=== PATIENT | female | born 1950 | race Caucasian/White ===

== ENCOUNTER → 2016-10-21 | Outpatient (CLI) | payer OTHER ==
[~2016-10-21] MED LIST: ALPR-411 PO; ASPI-390 PO; ASPI81TA28 PO; BIOTCAP2 PO; CHOL100010 PO; DOCU100C31 PO; FLUT1SPR12 NAE; PANT40TA; PSYL55.43 PO
[2016-10-21 14:54] LABS: URINE APPEARANCE CLEAR (CLEAR); URINE BILIRUBIN NEG (NEG); URINE COLOR YELLOW; URINE EPITHELIAL CELL AUTO 0-5 /lpf (0-5); URINE NITRITE NEG (NEG); URINE PH 6.5 (4.5-7.5); URINE SPECIFIC GRAVITY 1.012 (1.000-1.030); UROBILINOGEN NEG (NEG)
[2016-10-21 15:00] LABS: MANUAL MICROSCOPIC REQUIRED? NO; REVIEW REQ? NO
== END | disposition home or self-care (01) ==
LOC: C.LABSPEC 14:12
PROVIDERS: ATTEND Obstetrics & Gynecology
DX: R39.15 Urgency of urination (principal)

== ENCOUNTER → 2016-10-21 | Outpatient (CLI) | payer OTHER | END | disposition home or self-care (01) | LOC: C.PAPS 15:24 | PROVIDERS: ATTEND Obstetrics & Gynecology | DX: Z12.4 Encounter for screening for malignant neoplasm of cervix (principal) ==

== ENCOUNTER → 2016-10-21 | Outpatient (CLI) | payer OTHER ==
--- NOTE | 2016-10-21 16:47 | MAMMOGRAPHY REPORT ---
BILATERAL DIGITAL SCREENING MAMMOGRAM TOMOSYNTHESIS WITH CAD: 10/21/2016 CLINICAL HISTORY: Routine screening. Patient has no complaints. TECHNIQUE: Breast tomosynthesis in addition to standard 2D mammography was performed. Current study was also evaluated with a Computer Aided Detection (CAD) system. COMPARISON: Comparison is made to exams dated: 09/18/2015 mammogram, 09/16/2014 mammogram, 09/14/20 13 mammogram, 08/27/2012 mammogram, 08/02/2011 mammogram, and 07/18/2010 mammogram - [facility]. BREAST COMPOSITION: There are scattered areas of fibroglandular density in both breasts. FINDINGS: There is a stable-shaped metallic biopsy marker in the approximate 3:00 left breast. Chris ign coarse and round calcifications are stable within the right breast. No new suspicious mass, arc hitectural distortion or cluster of microcalcifications is seen. IMPRESSION: ACR BI-RADS CATEGORY 1: NEGATIVE There is no mammographic evidence of malignancy. A 1 year screening mammogram is recommended. The p atient will receive written notification of the results. Approximately 10% of breast cancers are not detected with mammography. A negative mammographic repor t should not delay biopsy if a clinically suggestive mass is present. Noelle Martins M.D. ay/:10/21/2016 15:29:34 Date Pitter: Mariama RAMIREZ)(M), [facility] letter sent: Normal 1/2 BI-RADS Code: ACR BI-RADS Category 1: Negative
== END | disposition home or self-care (01) ==
LOC: C.MAMM 09:53
PROVIDERS: ATTEND Obstetrics & Gynecology
DX: Z12.31 Encounter for screening mammogram for malignant neoplasm of breast (principal)

== ENCOUNTER → 2017-08-28 | Outpatient (CLI) | payer OTHER ==
[2017-08-28 13:59] LABS: BASO % 0.2 %; BASO ABS # 0.01 K/uL (0-0.2); COMPLETE YES; EOS % 1.1 %; HEMATOCRIT 39.9 % (37-47); LYMPH % 30.6 %; LYMPH ABS # 1.39 K/uL (1.2-3.4); MEAN CELL VOLUME 88.5 fL (80-100); MEAN CORPUSCULAR HEMOGLOBIN 27.7 pg (25-34); MEAN CORPUSCULAR HGB CONC 31.3 g/dl (32-36); MEAN PLATELET VOLUME 9.8 fL (7.4-10.4); MONO % 7.7 %; NEUT % 60.4 %; PLATELET COUNT 181 K/uL (130-400); RED BLOOD COUNT 4.51 M/uL (4.2-5.4); WHITE BLOOD COUNT 4.54 K/uL (4.8-10.8)
[2017-08-28 14:36] LABS: LYME DISEASE AB IGG NEG (NEG); LYME DISEASE AB IGM NEG (NEG)
== END | disposition home or self-care (01) ==
LOC: C.LABBC 11:19
PROVIDERS: ATTEND Nurse Practitioner Adult Health
DX: Z11.59 Encounter for screening for other viral diseases (principal); H53.9 Unspecified visual disturbance

== ENCOUNTER → 2017-09-18 | Outpatient (CLI) | payer OTHER ==
[2017-09-18 11:15] LABS: ALT/SGPT 22 U/L (12-78); AST/SGOT 19 U/L (15-37); BLOOD UREA NITROGEN 19 mg/dl (7-18); BUN/CREATININE RATIO 25.7 (10-20); CARBON DIOXIDE 29 mmol/L (21-32); CHLORIDE 105 mmol/L (98-107); CREATININE 0.72 mg/dl (0.60-1.20); GLUCOSE 80 mg/dl (70-99); POTASSIUM 4.2 mmol/L (3.5-5.1); SODIUM 138 mmol/L (136-145)
[2017-09-18 11:26] LABS: ALB/GLOB RATIO 0.9 (0.9-2); ALKALINE PHOSPHATASE 50 U/L (45-117); CHOLESTEROL 190 mg/dl (0-200); CHOLESTEROL/HDL RATIO 2.3; HDL CHOLESTEROL 84 mg/dl; LDL CHOLESTEROL CALCULATED 93 mg/dl; TRIGLYCERIDES 67 mg/dl (0-150); VERY LOW DENSITY LIPOPROT CALC 13 mg/dl
== END | disposition home or self-care (01) ==
LOC: C.LABBC 07:48
PROVIDERS: ATTEND Nurse Practitioner Adult Health
DX: Z00.00 Encounter for general adult medical examination without abnormal findings (principal); E55.9 Vitamin D deficiency, unspecified; R53.83 Other fatigue

== ENCOUNTER → 2017-10-27 | Outpatient (CLI) | payer OTHER ==
--- NOTE | 2017-10-27 15:52 | MAMMOGRAPHY REPORT ---
BILATERAL DIGITAL SCREENING MAMMOGRAM TOMOSYNTHESIS WITH CAD: 10/27/2017 CLINICAL HISTORY: Routine screening. Patient has no complaints. TECHNIQUE: Breast tomosynthesis in addition to standard 2D mammography was performed. Current study was also evaluated with a Computer Aided Detection (CAD) system. COMPARISON: Comparison is made to exams dated: 10/21/2016 mammogram, 09/18/2015 mammogram, 09/16/2014 mammogram, 09/14/2013 mammogram, and 08/02/2011 mammogram - [facility]. BREAST COMPOSITION: There are scattered areas of fibroglandular density in both breasts. FINDINGS: No suspicious masses, calcifications, or areas of architectural distortion are noted in ei ther breast. There has been no significant interval change compared to prior exams. A biopsy marker clip is again noted within the left upper outer quadrant. Bilateral benign-appearing calcifications are not significantly changed. IMPRESSION: ACR BI-RADS CATEGORY 2: BENIGN There is no mammographic evidence of malignancy. A 1 year screening mammogram is recommended. The pa tient will receive written notification of the results. Approximately 10% of breast cancers are not detected with mammography. A negative mammographic report should not delay biopsy if a clinically suggestive mass is present. Nohemi Whittaker M.D. /:10/27/2017 12:16:53 Behavioral Geneticist: Kristen RAMIREZ)(Keke), [facility] letter sent: Normal 1/2 BI-RADS Code: ACR BI-RADS Category 2: Benign
== END | disposition home or self-care (01) ==
LOC: C.MAMM 09:54
PROVIDERS: ATTEND Obstetrics & Gynecology
DX: Z12.31 Encounter for screening mammogram for malignant neoplasm of breast (principal)

== ENCOUNTER 2017-11-03 12:24 | Emergency (ER) | payer OTHER ==
[~2017-11-03] VITALS: Ht 157.5 cm; Wt 63.4 kg
[2017-11-03 12:35] VITALS: TEMP 37; Ht 157.5 cm; Wt 63.4 kg
[2017-11-03] MEDS ORDERED: MECLIZINE HCL 25 MG TAB PO STA ×2 (13:15→17:32)
[2017-11-03] MEDS ORDERED: LORAZEPAM 2 MG/ML 1 ML VIAL IV STA ×2 (13:15→15:04)
[2017-11-03] MEDS ORDERED: ONDANSETRON INJ 2 MG/ML 2 ML VIAL IV STA (13:15)
--- NOTE | 2017-11-03 13:18 | EMERGENCY ROOM VISIT NOTE ---
History Report prepared by Sharmila: Delonte Arriaga Under the Supervision of: Dr. Rolando Ly M.D. First contact with patient: 13:11 Chief Complaint: VERTIGO Stated Complaint: ILLNESS Nursing Triage Summary: Patient to ED via BLS states she is having "another episode" of vertigo that started today along with nausea/vomitting since last night. Patient denies aches/fever/chills. Patient reports history of vertigo. History of Present Illness The patient is a 67 year old female who presents to the Emergency Room with complaints of constant vertigo-like symptoms that began last night. The patient has a history of vertigo and notes that this is similar to those she has had in the past. She is currently nauseous and vomiting, which she did not have with her previous episodes. The patient is actively vomiting upon arrival to the emergency department. She denies any other fevers, chills, or body aches. Source of History: patient Onset: last night Position: head (vertigo) Quality: other (Vertigo) Timing: constant Associated Symptoms: + vomiting, No fevers, No chills Review of Systems See HPI for pertinent positives & negatives. A total of 10 systems reviewed and were otherwise negative. Past Medical & Surgical Medical Problems: (1) Transient neurological symptoms Surgical Problems: (1) History of endometrial ablation (2) Hx of tonsillectomy Family History Cancer Diabetes mellitus Gallbladder disease Hypertension Kidney disease Kidney stones Social History Smoking Status: Never Smoker Alcohol Use: none Drug Use: none Marital Status: Housing Status: lives with significant other Occupation Status: unemployed Current/Historical Medications Scheduled Aspirin (Aspirin Ec), 81 MG PO DAILY Biotin (Biotin 5000), 5 MG PO DAILY Cholecalciferol (Vitamin D), 4,000 UNITS PO DAILY Fluticasone Propionate (Nasal) (Flonase Allergy Relief Ch), 1 SPRAY DAGMAR DAILY Ondasetron Odt (Zofran Odt), 4 MG SL Q6H Psyllium (Metamucil), 1 PKT PO DAILY Scheduled PRN Alprazolam (Xanax), 0.5 MG PO Q6H PRN for Anxiety Meclizine Hcl (Meclizine Hcl), 1 TAB PO TID PRN for Dizziness or Vertigo Allergies Coded Allergies: Codeine (Unverified Allergy, Mild, 11/03/17) Penicillins (Unverified Allergy, Mild, 11/03/17) Sulfa Drugs (Unverified Allergy, Mild, 11/03/17) Physical Exam Vital Signs Date Time Temp Pulse Resp B/P (MAP) Pulse Ox O2 Delivery O2 Flow Rate FiO2 11/03/17 18:06 80 18 131/81 97 11/03/17 16:00 80 18 131/81 11/03/17 15:30 74 18 11/03/17 15:01 135/73 11/03/17 15:00 75 16 11/03/17 14:04 67 18 128/62 97 Room Air 11/03/17 12:55 67 11/03/17 12:35 37.0 67 20 155/83 97 Room Air Physical Exam GENERAL: Patient is a healthy-appearing well-nourished female HEAD: Normocephalic atraumatic EYES: Ocular movements intact pupils equal and react to light OROPHARYNX mucous membranes are moist no exudates present no erythema or edema present NECK: Supple no nuchal rigidity CHEST: Good equal expansion LUNGS: Clear and equal to auscultation CARDIAC: Normal S1 and S2 ABDOMEN: Soft nontender no guarding BACK: No CVA tenderness EXTREMITIES: No pain upon palpation normal muscle strength in all groups no clubbing cyanosis or edema NEURO: Patient is following commands and answering questions appropriately. Alert and oriented x3 Cranial Nerves 2-12 grossly intact. The patient has a positive Ritu-Hallpike Maneuver on the left. Medical Decision & Procedures ER Provider Diagnostic Interpretation: Radiology results as stated below per my review and radiologist interpretation: CT SCAN OF THE BRAIN WITHOUT IV CONTRAST CLINICAL HISTORY: Vertigo. COMPARISON STUDY: CT of the brain dated 03/07/2016. TECHNIQUE: Unenhanced axial CT scan of the brain is performed from the vertex to the skull base. A dose lowering technique was utilized adhering to the principles of ALARA. CT DOSE: 638.56 mGycm FINDINGS: Brain parenchyma: The brain parenchyma is normal in appearance. There is no hemorrhage, mass effect, or evidence of acute territorial ischemia by CT criteria. [place]-white matter is preserved. No extra-axial fluid collection is seen. Ventricles, sulci, cisterns: Normal in configuration. Intracranial vasculature: There is atherosclerotic calcification of the cavernous carotid arteries. Calvarium: Unremarkable. Sinuses and mastoids: The visualized paranasal sinuses are clear. The mastoid air cells are well pneumatized. Orbits: The bony orbits are grossly intact. There are bilateral ocular lens implants. IMPRESSION: There is no hemorrhage, mass effect, or evidence of acute territorial ischemia by CT criteria. Electronically signed by: Art Mcintyre M.D. 11/03/2017 2:07 PM Dictated Date/Time: 11/03/2017 2:05 PM Laboratory Results 11/03/17 12:40 Red Blood Count 4.41, Mean Corpuscular Volume 85.3, Mean Corpuscular Hemoglobin 27.9, Mean Corpuscular Hemoglobin Concent 32.7, Mean Platelet Volume 10.0, Neutrophils (%) (Auto) 60.6, Lymphocytes (%) (Auto) 30.9, Monocytes (%) (Auto) 7.2, Eosinophils (%) (Auto) 0.9, Basophils (%) (Auto) 0.2, Neutrophils # (Auto) 2.78, Lymphocytes # (Auto) 1.42, Monocytes # (Auto) 0.33, Eosinophils # (Auto) 0.04, Basophils # (Auto) 0.01 11/03/17 12:40 Test 11/03/17 12:40 11/03/17 14:15 White Blood Count 4.59 K/uL (4.8-10.8) Red Blood Count 4.41 M/uL (4.2-5.4) Hemoglobin 12.3 g/dL (12.0-16.0) Hematocrit 37.6 % (37-47) Mean Corpuscular Volume 85.3 fL (80-100) Mean Corpuscular Hemoglobin 27.9 pg (25-34) Mean Corpuscular Hemoglobin Concent 32.7 g/dl (32-36) Platelet Count 145 K/uL (130-400) Mean Platelet Volume 10.0 fL (7.4-10.4) Neutrophils (%) (Auto) 60.6 % Lymphocytes (%) (Auto) 30.9 % Monocytes (%) (Auto) 7.2 % Eosinophils (%) (Auto) 0.9 % Basophils (%) (Auto) 0.2 % Neutrophils # (Auto) 2.78 K/uL (1.4-6.5) Lymphocytes # (Auto) 1.42 K/uL (1.2-3.4) Monocytes # (Auto) 0.33 K/uL (0.11-0.59) Eosinophils # (Auto) 0.04 K/uL (0-0.5) Basophils # (Auto) 0.01 K/uL (0-0.2) RDW Standard Deviation 40.3 fL (36.4-46.3) RDW Coefficient of Variation 13.0 % (11.5-14.5) Immature Granulocyte % (Auto) 0.2 % Immature Granulocyte # (Auto) 0.01 K/uL (0.00-0.02) Anion Gap 10.0 mmol/L (3-11) Est Creatinine Clear Calc Drug Dose 65.4 ml/min Estimated GFR () 99.7 Estimated GFR (Non- 86.1 BUN/Creatinine Ratio 21.7 (10-20) Calcium Level 9.2 mg/dl (8.5-10.1) Total Bilirubin 0.6 mg/dl (0.2-1) Direct Bilirubin 0.2 mg/dl (0-0.2) Aspartate Amino Transf (AST/SGOT) 21 U/L (15-37) Alanine Aminotransferase (ALT/SGPT) 24 U/L (12-78) Alkaline Phosphatase 41 U/L (45-117) Total Protein 7.5 gm/dl (6.4-8.2) Albumin 3.8 gm/dl (3.4-5.0) Lipase 123 U/L (73-393) Urine Color YELLOW Urine Appearance TURBID (CLEAR) Urine pH 6.5 (4.5-7.5) Urine Specific [place] 1.022 (1.000-1.030) Urine Protein NEG (NEG) Urine Glucose (UA) NEG (NEG) Urine Ketones 2+ (NEG) Urine Occult Blood NEG (NEG) Urine Nitrite NEG (NEG) Urine Bilirubin NEG (NEG) Urine Urobilinogen NEG (NEG) Urine Leukocyte Esterase NEG (NEG) Urine WBC (Auto) 1-5 /hpf (0-5) Urine RBC (Auto) 0-4 /hpf (0-4) Urine Hyaline Casts (Auto) 1-5 /lpf (0-5) Urine Epithelial Cells (Auto) 5-10 /lpf (0-5) Urine Bacteria (Auto) NEG (NEG) Labs reviewed by ED physician. Medications Administered Medications (Trade) Dose Ordered Sig/Tomasz Route Start Time Stop Time Status Last Admin Dose Admin Ondansetron HCl (Zofran Inj) 4 mg NOW STAT IV 11/03/17 13:15 11/03/17 13:17 DC 11/03/17 13:37 4 MG Lorazepam (Ativan Inj) 0.5 mg NOW STAT IV 11/03/17 13:15 11/03/17 13:17 DC 11/03/17 13:38 0.5 MG Meclizine HCl (Antivert Tab) 25 mg NOW STAT PO 11/03/17 13:15 11/03/17 13:17 DC 11/03/17 13:38 25 MG Sodium Chloride 1,000 ml @ 999 mls/hr Q1H1M STAT IV 11/03/17 15:04 11/03/17 16:04 DC 11/03/17 15:14 999 MLS/HR Lorazepam (Ativan Inj) 0.5 mg NOW STAT IV 11/03/17 15:04 11/03/17 15:06 DC 11/03/17 15:14 0.5 MG Ondansetron HCl (Zofran Odt) 4 mg NOW STAT PO 11/03/17 17:32 11/03/17 17:33 DC 11/03/17 17:40 4 MG Meclizine HCl (Antivert Tab) 25 mg NOW STAT PO 11/03/17 17:32 11/03/17 17:33 DC 11/03/17 17:40 25 MG ED Course 1313: Past medical records reviewed. The patient was evaluated in room B3B. A complete history and physical examination was performed. 1315: Ordered Antivert Tab 25 mg PO, Ativan 0.5 mg IV, Zofran 4 mg IV. 1631: I discussed the findings of the case with the patient at this time. She is still experiencing her vertigo. I offered her admission to the hospital. She declined and would like to be discharged home. Medical Decision Differential diagnosis: Etiologies such as benign positional vertigo, dehydration, hypovolemia, anemia, tumor, infection, hypoglycemia, electrolyte abnormalities, cardiac sources, intracerebral event, toxicologic, neurologic, as well as others were entertained. This is a 67-year-old female who presents emergency department complaining of vertigo. The patient has a history of vertigo previously. She has a positive Ritu-Hallpike maneuver when turning her head to the left. Patient was sent for CAT scan head which did not show any acute intracranial abnormality. She was given Ativan as well as meclizine here in emergency Department with some improvement in her symptoms however the patient was still extremely dizzy and because of this I recommended that the patient be admitted to the hospital however she is adamantly refusing. I also recommended a CTA of the head however the patient is also refusing this. She wishes to be discharged home so place her on meclizine and Zofran stressed the need for follow-up with her physical therapist. Patient was in agreement with the treatment plan. Medication Reconcilliation Current Medication List: was personally reviewed by me Blood Pressure Screening Patient's blood pressure: Normal blood pressure Impression Primary Impression: Vertigo Scribe Attestation The scribe's documentation has been prepared under my direction and personally reviewed by me in its entirety. I confirm that the note above accurately reflects all work, treatment, procedures, and medical decision making performed by me. Departure Information Dispostion Home / Self-Care Prescriptions Ondasetron Odt (ZOFRAN ODT) 4 Mg Tab 4 MG SL Q6H for Nausea, #6 TAB Prov: Rolando Ly MD 11/03/17 Meclizine Hcl (MECLIZINE HCL) 25 Mg Tab 1 TAB PO TID Y for Dizziness or Vertigo for 10 Days, #30 TAB Prov: Rolando Ly MD 11/03/17 Referrals No Doctor, Assigned (PCP) Forms HOME CARE DOCUMENTATION FORM, IMPORTANT VISIT INFORMATION, WORK / SCHOOL INSTRUCTIONS Patient Instructions My [facility] Additional Instructions You have been examined and treated today on an emergency basis only. This is not a substitute for, or an effort to provide, complete comprehensive medical care. It is impossible to recognize and treat all injuries or illnesses in a single emergency department visit. It is therefore important that you follow up closely with your PCP. Call as soon as possible for an appointment. Thank you for your time and consideration. I look forward to speaking with you again soon. Please don't hesitate to call us if you have any questions.
[2017-11-03 13:29] LABS: BASO % 0.2 %; BASO ABS # 0.01 K/uL (0-0.2); EOS % 0.9 %; EOS ABS # 0.04 K/uL (0-0.5); HEMATOCRIT 37.6 % (37-47); HEMOGLOBIN 12.3 g/dL (12.0-16.0); IG# 0.01 K/uL (0.00-0.02); LYMPH % 30.9 %; LYMPH ABS # 1.42 K/uL (1.2-3.4); MEAN CELL VOLUME 85.3 fL (80-100); MEAN CORPUSCULAR HEMOGLOBIN 27.9 pg (25-34); MEAN CORPUSCULAR HGB CONC 32.7 g/dl (32-36); MONO % 7.2 %; MONO ABS # 0.33 K/uL (0.11-0.59); NEUT % 60.6 %; NEUT ABS # 2.78 K/uL (1.4-6.5); PLATELET COUNT 145 K/uL (130-400); RED CELL DISTRIBUTION WIDTH SD 40.3 fL (36.4-46.3); WHITE BLOOD COUNT 4.59 K/uL (4.8-10.8)
[2017-11-03 13:52] LABS: ALBUMIN 3.8 gm/dl (3.4-5.0); CALCIUM 9.2 mg/dl (8.5-10.1); CREATININE 0.72 mg/dl (0.60-1.20); POTASSIUM 3.6 mmol/L (3.5-5.1)
[2017-11-03 13:54] LABS: TOTAL PROTEIN 7.5 gm/dl (6.4-8.2)
[2017-11-03] MEDS ORDERED: PSYL48.59 PO (13:55)
[2017-11-03] MEDS ORDERED: CHOL20009 PO (13:56)
--- NOTE | 2017-11-03 14:08 | DIAGNOSTIC IMAGING REPORT ---
CT SCAN OF THE BRAIN WITHOUT IV CONTRAST CLINICAL HISTORY: Vertigo. COMPARISON STUDY: CT of the brain dated 03/07/2016. TECHNIQUE: Unenhanced axial CT scan of the brain is performed from the vertex to the skull base. A dose lowering technique was utilized adhering to the principles of ALARA. CT DOSE: 638.56 mGycm FINDINGS: Brain parenchyma: The brain parenchyma is normal in appearance. There is no hemorrhage, mass effect, or evidence of acute territorial ischemia by CT criteria. [place]-white matter is preserved. No extra-axial fluid collection is seen. Ventricles, sulci, cisterns: Normal in configuration. Intracranial vasculature: There is atherosclerotic calcification of the cavernous carotid arteries. Calvarium: Unremarkable. Sinuses and mastoids: The visualized paranasal sinuses are clear. The mastoid air cells are well pneumatized. Orbits: The bony orbits are grossly intact. There are bilateral ocular lens implants. IMPRESSION: There is no hemorrhage, mass effect, or evidence of acute territorial ischemia by CT criteria. Electronically signed by: Art Mcintyre M.D. 11/03/2017 2:07 PM Dictated Date/Time: 11/03/2017 2:05 PM
[2017-11-03] MEDS ORDERED: SODIUM CHLORIDE 0.9% 1000ML 1,000 ML IV STA (15:04)
[2017-11-03] MEDS ORDERED: MECL1TAB42 PO (16:32)
[2017-11-03] MEDS ORDERED: ONDA4TAB10 SL (16:32)
[2017-11-03] MEDS ORDERED: ONDANSETRON 4MG OD TAB PO STA (17:32)
[2017-11-03 18:06] VITALS: BP 131/81; PULSE 80; O2SAT 97
== END 2017-11-03 18:07 | disposition home or self-care (01) ==
LOC: EDBD 12:24 → C.ED 12:27 → C.EDB 18:07
DX: R42 Dizziness and giddiness (principal); Z90.89 Acquired absence of other organs; Z98.890 Other specified postprocedural states; Z83.3 Family history of diabetes mellitus; Z82.49 Family history of ischemic heart disease and other diseases of the circulatory system; Z84.1 Family history of disorders of kidney and ureter; Z79.82 Long term (current) use of aspirin

== ENCOUNTER → 2017-11-11 | Outpatient (CLI) | payer OTHER ==
[~2017-11-11] MED LIST changes: -ASPI-390 PO; -CHOL100010 PO; +CHOL20009 PO; -DOCU100C31 PO; +MECL1TAB42 PO; +ONDA4TAB10 SL; -PANT40TA; +PSYL48.59 PO; -PSYL55.43 PO
[2017-11-11 17:03] LABS: BLOOD UREA NITROGEN 24 mg/dl (7-18); CREATININE 1.13 mg/dl (0.60-1.20)
== END | disposition home or self-care (01) ==
LOC: C.LABBC 14:16
PROVIDERS: ATTEND Physician Assistant
DX: R42 Dizziness and giddiness (principal)

== ENCOUNTER → 2017-11-13 | Outpatient (CLI) | payer OTHER ==
[~2017-11-13] MED LIST changes: +GADAVIST IV PRN
--- NOTE | 2017-11-13 14:10 | DIAGNOSTIC IMAGING REPORT ---
BRAIN COMBO FOR IAC CLINICAL HISTORY: 67 years-old Female presenting with VESTIBULAR NEURONITIS *W/IAC'S*, right greater than left hearing loss, severe vertigo. TECHNIQUE: Multisequence, multiplanar MR imaging of the brain was performed before and after the administration of intravenous contrast. Dedicated sequences to evaluate the internal auditory canals were also performed. IV contrast: 5.1 mL of Gadavist. COMPARISON: 03/05/2016. FINDINGS: Ventricles and sulci normal in size. Periventricular and subcortical white matter T2/FLAIR hyperintensity, nonspecific but likely indicative of chronic small vessel ischemic change. No mass effect or midline shift. No restricted diffusion to suggest acute ischemia. No hemorrhage. No extra-axial fluid collection. The internal auditory canals are normal. No abnormal thickening of the transiting nerves. Normal appearance and signal intensity of the inner ears structures. No mastoid air cell fluid. Focal heterogeneity of enhancement in the right aspect of the pituitary gland suggests underlying microadenoma (series 12 image 1), which measures 2 mm. T2 skull base flow voids preserved. No abnormal parenchymal enhancement. Bone marrow signal intensity within the calvarium within normal limits. IMPRESSION: 1. No acute intracranial abnormality. 2. No abnormality of the internal auditory canals or inner ears structures. 3. Suspected 2 mm microadenoma, which is of doubtful clinical significance. Electronically signed by: Jose Fraga M.D. 11/13/2017 2:08 PM Dictated Date/Time: 11/13/2017 1:52 PM
== END | disposition home or self-care (01) ==
LOC: C.MRIBC 12:42
PROVIDERS: ATTEND Physician Assistant
DX: H81.20 Vestibular neuronitis, unspecified ear (principal)

== ENCOUNTER → 2017-12-16 | Outpatient (CLI) | payer OTHER ==
[~2017-12-16] MED LIST changes: -GADAVIST IV PRN; -MECL1TAB42 PO
[2017-12-16 13:02] LABS: BASO % 0.2 %; BASO ABS # 0.01 K/uL (0-0.2); EOS % 0.2 %; EOS ABS # 0.01 K/uL (0-0.5); HEMATOCRIT 39.6 % (37-47); HEMOGLOBIN 12.9 g/dL (12.0-16.0); IG# 0.01 K/uL (0.00-0.02); LYMPH % 27.7 %; LYMPH ABS # 1.27 K/uL (1.2-3.4); MEAN CELL VOLUME 85.2 fL (80-100); MEAN CORPUSCULAR HEMOGLOBIN 27.7 pg (25-34); MEAN CORPUSCULAR HGB CONC 32.6 g/dl (32-36); MEAN PLATELET VOLUME 9.8 fL (7.4-10.4); MONO % 10.5 %; MONO ABS # 0.48 K/uL (0.11-0.59); NEUT % 61.2 %; NEUT ABS # 2.81 K/uL (1.4-6.5); PLATELET COUNT 192 K/uL (130-400); RED CELL DISTRIBUTION WIDTH CV 13.1 % (11.5-14.5); RED CELL DISTRIBUTION WIDTH SD 40.7 fL (36.4-46.3); WHITE BLOOD COUNT 4.59 K/uL (4.8-10.8)
[2017-12-16 14:01] LABS: ALBUMIN 3.6 gm/dl (3.4-5.0); ALKALINE PHOSPHATASE 56 U/L (45-117); ALT/SGPT 20 U/L (12-78); AST/SGOT 19 U/L (15-37); BLOOD UREA NITROGEN 14 mg/dl (7-18); CALCIUM 8.9 mg/dl (8.5-10.1); CARBON DIOXIDE 29 mmol/L (21-32); CREATININE 0.72 mg/dl (0.60-1.20); GLUCOSE 88 mg/dl (70-99); POTASSIUM 4.1 mmol/L (3.5-5.1); SODIUM 139 mmol/L (136-145); TOTAL PROTEIN 7.6 gm/dl (6.4-8.2)
== END | disposition home or self-care (01) ==
LOC: C.LABBC 11:53
PROVIDERS: ATTEND Nurse Practitioner Adult Health
DX: R10.812 Left upper quadrant abdominal tenderness (principal); R11.0 Nausea

== ENCOUNTER → 2017-12-16 | Outpatient (CLI) | payer OTHER ==
[2017-12-21 17:32] LABS: ANA SCREEN TC 249X POSITIVE (NEGATIVE); TESTOSTERONE,TOTAL <1 ng/dL (2-45)
== END | disposition home or self-care (01) ==
LOC: C.LAB1850 14:20
PROVIDERS: ATTEND Physician Assistant
DX: L65.9 Nonscarring hair loss, unspecified (principal)

== ENCOUNTER → 2017-12-22 | Outpatient (CLI) | payer OTHER ==
--- NOTE | 2017-12-22 08:53 | DIAGNOSTIC IMAGING REPORT ---
ABDOMEN COMPLETE (US) CLINICAL HISTORY: Left upper quadrant abdominal tenderness. COMPARISON STUDY: Abdominal ultrasound April 26, [address] of the chest, abdomen and pelvis March 06, 2016. FINDINGS: Liver morphology is normal. A 5 cm echogenic right hepatic lobe lesion has mildly increased in size since exam of March 06, 2016 but is suggestive of a hemangioma. No additional hepatic lesions are identified. There are no gallstones. No biliary ductal dilatation is present. Pancreas is within normal limits by sonography. The size of the spleen is normal. The right kidney measures 9.8 cm and the left measures 11.2 cm. There is no hydronephrosis. The caliber of the abdominal aorta is normal. Visualized portions of the IVC are patent. There is no ascites. Sonography of the left lower anterior ribs at site of maximal pain demonstrated no abnormality. IMPRESSION: 1. No gallstones or biliary ductal dilatation. 2. Mild increase in size of a 5 cm echogenic right hepatic lobe lesion consistent with a hemangioma. 3. No sonographic abnormality of the left lower anterior ribs at site of maximal pain. Electronically signed by: Jay Dick M.D. 12/22/2017 8:52 AM Dictated Date/Time: 12/22/2017 8:48 AM
== END | disposition home or self-care (01) ==
LOC: C.ULTRBC 08:00
PROVIDERS: ATTEND Nurse Practitioner Adult Health
DX: R10.812 Left upper quadrant abdominal tenderness (principal)

== ENCOUNTER → 2017-12-30 | Outpatient (CLI) | payer OTHER ==
[~2017-12-30] MED LIST changes: +OPTIRAY 320 IV PRN
--- NOTE | 2017-12-30 16:21 | DIAGNOSTIC IMAGING REPORT ---
ABDOMINAL CT WITH AND WITHOUT INTRAVENOUS CONTRAST, ADRENAL PROTOCOL HISTORY: L65.9 Hair lossR89.9 Abnormal laboratory test Adrenal protocolCTS TECHNIQUE: Multiaxial CT images of the abdomen were performed both before and after the intravenous ministration of contrast including 15 minute delayed images to evaluate the adrenal glands. COMPARISON STUDY: Chest abdomen pelvis CTA 03/06/2016. FINDINGS: The small scarlike density seen within the right middle lobe. The left lung base is clear. No suspicious lytic or blastic osseous lesions. Normal adrenal glands. No retroperitoneal lymphadenopathy or retroperitoneal masses. The pancreas, kidneys, and spleen enhance normally. There are 3 stable lesions within the liver consistent with hemangiomas. Dominant lesion at the central aspect of the liver measures 3.8 x 3.5 cm. The visualized loops of bowel show no wall thickening or obstruction. Normal gallbladder. IMPRESSION: Normal adrenal glands. Stable hepatic hemangiomas. Electronically signed by: Junaid Fields M.D. 12/30/2017 4:20 PM Dictated Date/Time: 12/30/2017 4:10 PM
== END | disposition home or self-care (01) ==
LOC: C.CTS 15:07
PROVIDERS: ATTEND Physician Assistant
DX: L65.9 Nonscarring hair loss, unspecified (principal); R89.9 Unspecified abnormal finding in specimens from other organs, systems and tissues; D18.03 Hemangioma of intra-abdominal structures

== ENCOUNTER → 2018-01-05 | Outpatient (CLI) | payer OTHER ==
[~2018-01-05] MED LIST changes: -OPTIRAY 320 IV PRN
[2018-01-09 04:34] LABS: ANA SCREEN TC 249X POSITIVE (NEGATIVE); ANTI-SS-A >8.0 POS AI (<1.0 NEG); ANTI-SS-B <1.0 NEG AI (<1.0 NEG); COMPLEMENT C3 TC 44859W 121 MG/DL (90-180); COMPLEMENT C4 TC 44982E 26 MG/DL (16-47)
== END | disposition home or self-care (01) ==
LOC: C.LAB1850 15:04
PROVIDERS: ATTEND Internal Medicine Rheumatology
DX: L65.9 Nonscarring hair loss, unspecified (principal)

== ENCOUNTER → 2018-02-13 | Outpatient (CLI) | payer OTHER | END | disposition home or self-care (01) | LOC: C.LABBC 10:27 | DX: J30.9 Allergic rhinitis, unspecified (principal) ==